=== PATIENT | female | born 1995 | race Caucasian/White ===

== ENCOUNTER 2024-09-29 15:34 | Emergency (ER) | payer SELFPAY ==
[2024-09-29 16:01] VITALS: BP 118/87; PULSE 73; RESP 18; TEMP 37.2; O2SAT 98; BMI 17.4
--- NOTE | 2024-10-17 07:24 | ED.ANXIETY ---
HPI - Anxiety General Chief Complaint: Anxiety Stated Complaint: dehydration and panic attacks Source: patient Mode of arrival: Ambulatory Related Data Allergies Allergy/AdvReac Type Severity Reaction Status Date / Time Sulfa (Sulfonamide Allergy Vomiting Verified 09/29/24 16:01 Antibiotics) sulfamethoxazole AdvReac Rash Verified 09/29/24 16:01 [From ] trimethoprim [From ] AdvReac Rash Verified 09/29/24 16:01 Patient History Social History Smoking Status: Never smoker Smoking Status: Never smoker Exam Initial Vital Signs Initial Vital Signs: Vital Signs Temperature 99 F 09/29/24 16:01 Pulse Rate 73 09/29/24 16:01 Respiratory Rate 18 09/29/24 16:01 Blood Pressure 118/87 09/29/24 16:01 Pulse Oximetry 98 09/29/24 16:01 Oxygen Delivery Method Room Air 09/29/24 16:01 Discharge Plan Departure Patient Disposition: Left Without Being Seen Clinical Impression: Patient left after triage
== END 2024-09-29 17:08 | disposition left against medical advice (07) ==
PROVIDERS: Emergency Provider Emergency Medicine
DX: F41.9 Anxiety disorder, unspecified (principal)
CPT/HCPCS: 99281

== ENCOUNTER 2024-10-24 12:57 | Emergency (ER) | payer OTHER, SELFPAY ==
[2024-10-24 13:18] VITALS: BP 129/74; PULSE 98; RESP 18; TEMP 37.3; O2SAT 106; BMI 18.3
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
[2024-10-24 14:22] VITALS: BP 124/73; PULSE 96; O2SAT 98
--- NOTE | 2024-10-24 14:23 | PC.NURSE ---
microelectronics technician at patient bedside performing ordered diagnostic test.
[2024-10-24 14:30] LABS: Bacteria Urine Few (2-10); Mucus Urine 1+ (Negative); RBC Urine 0-1/HPF (0-5/HPF); Squamous Epithelial Cell Urine 1-5 /HPF (0-5/HPF); Urine Volume 10mL (spun); WBC Urine 1-5/HPF (0-5/HPF)
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
[2024-10-24 15:52] VITALS: PULSE 106; O2SAT 97
[2024-10-24 15:57] VITALS: BP 129/61; PULSE 100; TEMP 36.8; O2SAT 98
[2024-10-24 16:39] VITALS: BP 124/62; PULSE 98; RESP 20; TEMP 37; O2SAT 100
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
== END 2024-10-24 16:42 | disposition home or self-care (01) ==
PROVIDERS: Emergency Provider Emergency Medicine
DX: O26.891 Other specified pregnancy related conditions, first trimester (principal); S06.0X0A Concussion without loss of consciousness, initial encounter; S80.02XA Contusion of left knee, initial encounter; Z3A.01 Less than 8 weeks gestation of pregnancy
CPT/HCPCS: 76801; 76817; 81003; 81015; 81025; 87086; 99282; 99283